=== PATIENT | male | born 1965 | race Caucasian/White ===

== ENCOUNTER 2017-12-11 07:32 | Inpatient (IN) | payer BC ==
[2017-11-22 13:52] VITALS: BMI 47.0
--- NOTE | 2017-11-22 14:43 | PAT Medication Instructions ---
Service Date November 22, 2017. Current Home Medication List Atorvastatin (Lipitor), 20 MG PO HS Diclofenac (Voltaren), 75 MG PO BID Duloxetine Hcl (Cymbalta), 60 MG PO HS Gabapentin (Neurontin), 600 MG PO TID Lorazepam (Ativan), 0.5 MG PO PRN Multivitamin (Multivitamin), 1 TAB PO QAM Omeprazole (Prilosec), 20 MG PO PRN Oxycodone/Acetaminophen 5MG/325MG (Percocet 5MG/325MG), 1 TABLET PO Q6H PRN for Pain Triamterene/Hctz (Dyazide 37.5MG/25MG), 1 TAB PO QAM Medication Instructions For Your Scheduled Surgery - Hold the following medications 7 days prior to surgery per surgeon: Diclofenac (Voltaren), 75 MG PO BID - Hold the following medications the morning of surgery: Multivitamin (Multivitamin), 1 TAB PO QAM Triamterene/Hctz (Dyazide 37.5MG/25MG), 1 TAB PO QAM - Take the following medications the morning of surgery with a sip of water: Gabapentin (Neurontin), 600 MG PO TID Lorazepam (Ativan), 0.5 MG PO PRN (if needed) Omeprazole (Prilosec), 20 MG PO PRN (if needed) Oxycodone/Acetaminophen 5MG/325MG (Percocet 5MG/325MG), 1 TABLET PO Q6H PRN for Pain (if needed, can be taken up to four hours before surgery) - Take the following medications as scheduled the night before surgery: Atorvastatin (Lipitor), 20 MG PO HS Duloxetine Hcl (Cymbalta), 60 MG PO HS Gabapentin (Neurontin), 600 MG PO TID Lorazepam (Ativan), 0.5 MG PO PRN (if needed) Omeprazole (Prilosec), 20 MG PO PRN (if needed) Oxycodone/Acetaminophen 5MG/325MG (Percocet 5MG/325MG), 1 TABLET PO Q6H PRN for Pain (if needed) If you have any questions please call us at [phone] or [phone] or [phone]
[2017-11-22 15:10] LABS: BASO % 0.5 %; BASO ABS # 0.03 K/uL (0-0.2); EOS % 5.2 %; EOS ABS # 0.32 K/uL (0-0.5); HEMATOCRIT 43.1 % (42-52); HEMOGLOBIN 14.6 g/dL (14.0-18.0); IG# 0.01 K/uL (0.00-0.02); LYMPH % 28.3 %; LYMPH ABS # 1.76 K/uL (1.2-3.4); MEAN CELL VOLUME 83.9 fL (80-100); MEAN CORPUSCULAR HEMOGLOBIN 28.4 pg (25-34); MEAN CORPUSCULAR HGB CONC 33.9 g/dl (32-36); MONO % 7.2 %; MONO ABS # 0.45 K/uL (0.11-0.59); NEUT % 58.6 %; NEUT ABS # 3.64 K/uL (1.4-6.5); PLATELET COUNT 227 K/uL (130-400); RED CELL DISTRIBUTION WIDTH CV 14.6 % (11.5-14.5); WHITE BLOOD COUNT 6.21 K/uL (4.8-10.8)
--- NOTE | 2017-11-22 15:16 | DIAGNOSTIC IMAGING REPORT ---
CHEST 2 VIEWS ROUTINE HISTORY: 52 years-old Male PAT preoperative exam. No acute chest complaints COMPARISON: None available TECHNIQUE: PA and lateral views of the chest FINDINGS: Cardiac mediastinal and hilar silhouettes are within normal limits. There is no pneumothorax, pleural effusion, focal airspace consolidation or overt pulmonary edema. Linear subsegmental left basilar opacities suggest atelectasis or scarring. Hardware of the cervical spine. Bones appear grossly intact. IMPRESSION: No acute process. The above report was generated using voice recognition software. It may contain grammatical, syntax or spelling errors. Electronically signed by: Ariel Gross M.D. 11/22/2017 3:14 PM Dictated Date/Time: 11/22/2017 3:13 PM
[2017-11-22 15:22] LABS: CALCIUM 8.6 mg/dl (8.5-10.1); CREATININE 1.08 mg/dl (0.60-1.40); POTASSIUM 3.9 mmol/L (3.5-5.1)
[~2017-12-11] VITALS: Ht 172.7 cm; Wt 140.3 kg
[2017-12-11] VITALS (8 sets, daily range): BP systolic 108–146; BP diastolic 72–87; PULSE 65–106; TEMP 36.4–36.6; O2SAT 91–99; Ht 172.7 cm; Wt 140.3 kg
[~2017-12-11 07:32] MED LIST: ACETAMINOPHEN 500 MG TAB PO SCH; ATOR-22 PO; CEFAZOLIN 3000MG IV PUSH 22.5 ML IV SCH; CeleBREX 200 MG CAP PO SCH; DICL-201 PO; DULO60CA44 PO; GABA-113 PO; GABAPENTIN 900 MG PO SCH; LACTATED RINGER'S 1000ML 1,000 ML IV SCH; LORA-741 PO; MULT-506 PO; OXYC-57 PO; PRLSR20 PO; TRIA37.5 PO
[2017-12-11] MEDS ORDERED: MIDAZOLAM HCL 1 MG/ML 2ML VIAL ONE (08:36)
[2017-12-11] MEDS ORDERED: FENTANYL CITRATE INJ 50 MCG/1 ML 2 ML VIAL ONE ×5 (08:36→14:18)
--- NOTE | 2017-12-11 08:49 | History & Physical Bridge Note ---
H&P Re-Evaluation Bridge Note: I have examined the patient, reviewed the History & Physical and in the interval since the performance of the History & Physical I have noted the following changes of clinical significance: No changes noted
--- NOTE | 2017-12-11 08:50 | History and Physical ---
History & Physical Date December 11, 2017. Chief Complaint Back and leg pain History of Present Illness The patient is a 52 year old male with complaints of back and leg pain Additional History Hepatic Disease: No Endocrine Disorder: No Kidney Disease: No Hypertension: Yes Heart Disease: No Bleeding Tendencies: No Infectious Diseases: No Other: Morbid obesity Allergies Coded Allergies: No Known Allergies (Unverified , 12/11/17) Home Medications Scheduled Atorvastatin (Lipitor), 20 MG PO HS Diclofenac (Voltaren), 75 MG PO BID Duloxetine Hcl (Cymbalta), 60 MG PO HS Gabapentin (Neurontin), 600 MG PO TID Lorazepam (Ativan), 0.5 MG PO PRN Multivitamin (Multivitamin), 1 TAB PO QAM Omeprazole (Prilosec), 20 MG PO PRN Triamterene/Hctz (Dyazide 37.5MG/25MG), 1 TAB PO QAM Scheduled PRN Oxycodone/Acetaminophen 5MG/325MG (Percocet 5MG/325MG), 1 TABLET PO Q6H PRN for Pain Physical Examination Skin: warm/dry, no rash Eyes: normal inspection, EOMI, sclerae normal ENT: normal ENT inspection, pharynx normal Head: normocephalic, atraumatic Neck: supple, no adenopathy, trachea midline Respiratory/Chest: lungs clear, normal breath sounds, no respiratory distress Cardiovascular: regular rate, rhythm, no edema, no murmur Abdomen / GI: normal bowel sounds, non tender Back: normal inspection Extremities: normal inspection, normal range of motion Neurologic/Psych: no motor/sensory deficits, alert, normal reflexes, oriented x 3 Diagnosis Lumbar spinal stenosis with neurogenic claudication and spondylolisthesis Plan of Treatment L2-S1 decompression and fusion
[2017-12-11] MEDS ORDERED: EpINEphrine INJ 1MG/ML AMP 1 MG/ML AMP ONE (10:08)
[2017-12-11] MEDS ORDERED: BACITRACIN 50000 UNIT VIAL ONE (10:08)
[2017-12-11] MEDS ORDERED: BUPIVACAINE 0.25% 30 ML VIAL ONE (10:10)
[2017-12-11] MEDS ORDERED: PHENYLEPHRINE 100MCG/ML 5ML SYR IV PRN (10:30)
[2017-12-11] MEDS ORDERED: NALOXONE HCL 0.4 MG/1 ML VIAL/CARP IV PRN ×3 (10:30→14:15)
[2017-12-11] MEDS ORDERED: ATROPINE SULFATE 0.1 MG/ML 5ML SYR IV PRN (10:30)
[2017-12-11] MEDS ORDERED: ONDANSETRON INJ 2 MG/ML 2 ML VIAL IV PRN ×2 (10:30→14:15)
[2017-12-11] MEDS ORDERED: MoRPHine SULFATE 4 MG/ML 1 ML CARP\\VIAL IV PRN (10:30)
[2017-12-11] MEDS ORDERED: MEPERIDINE HCL 25 MG/ML CARP IV PRN (10:30)
[2017-12-11] MEDS ORDERED: EpHEDrine SULFATE INJ 50 MG/ML AMP IV PRN (10:30)
[2017-12-11] MEDS ORDERED: FLUMAZENIL 0.1 MG/1 ML 10 ML VIAL IV PRN (10:30)
[2017-12-11] MEDS ORDERED: LABETALOL HCL IV 5 MG/ML 20ML IV PRN (10:30)
[2017-12-11] MEDS ORDERED: HYDROmorphone INJ 2 MG/ML SYR/VIAL ONE (10:56)
[2017-12-11] MEDS ORDERED: ROCURONIUM BROMIDE 10 MG/ML 5 ML VIAL ONE (10:57)
[2017-12-11] MEDS ORDERED: ALBUMIN HUMAN 5% 12.5 GM/250 ML VIAL IV ONE ×2 (11:18→13:06)
[2017-12-11 12:40] LABS: HEMATOCRIT 33.6 % (42-52); HEMOGLOBIN 11.4 g/dL (14.0-18.0)
[2017-12-11] MEDS ORDERED: EpHEDrine SULFATE 50MG/5ML SYR ONE ×2 (13:13→14:23)
[2017-12-11] MEDS ORDERED: ONDANSETRON INJ 2 MG/ML 2 ML VIAL ONE ×2 (13:13→14:23)
[2017-12-11] MEDS ORDERED: VOLUVEN IN NSS ONE (13:13)
[2017-12-11] MEDS ORDERED: GLYCOPYRROLATE INJ 0.2 MG/ML VIAL ONE (13:13)
[2017-12-11] MEDS ORDERED: NEOSTIGMINE METHYLSULFATE 1 MG/ML 10ML VIAL ONE (13:13)
[2017-12-11] MEDS ORDERED: LIDOCAINE HCL 2% 2 ML VIAL (20MG/ML) ONE (13:13)
[2017-12-11] MEDS ORDERED: PROPOFOL IV EMULSION 10 MG/ML 20 ML VIAL ONE (13:13)
[2017-12-11] MEDS ORDERED: DEXAMETHASONE SOD INJ 4 MG/ML VIAL ONE (13:13)
[2017-12-11] MEDS ORDERED: SURGICEL ABSORB HEMOSTAT 2IN X 14IN TOP ONE (13:27)
[2017-12-11] MEDS ORDERED: CEFAZOLIN SOD 1 GM VIAL ONE (13:49)
[2017-12-11] MEDS ORDERED: FLOSEAL HEMOSTATIC MATRIX 10ML TOP ONE (13:54)
[2017-12-11] MEDS ORDERED: SODIUM CHLORIDE 0.9% 1000ML 1,000 ML IV SCH (14:06)
--- NOTE | 2017-12-11 14:06 | [facility] Operative Report ---
Operative Report Operative Date December 11, 2017. Pre-Operative Diagnosis Lumbar spinal stenosis with neurogenic claudication and spondylolisthesis Post-Operative Diagnosis Lumbar spinal stenosis with neurogenic claudication and spondylolisthesis Procedure(s) Performed 1.Lumbar decompression medial facetectomy foraminotomies L2-3 L3-4 L4-5 L5-S1. #2 posterior spinal fusion L2-3 L3-4 L4-5 L5-S1. #3 placement posterior segmental instrumentation L2-S1 including a cross-link. #4 interbody fusion L5-S1. #5 placement of titanium 12 x 26 mm cage at L5-S1. #6 placement of locally harvested autograft in the posterior gutters. #7 placement InFUSE collagen sponge, mass graft and posterior gutters and ostial amp in the interbody space. Surgeon Dr. Jensen Tank Tester Surgeon(s) Whitney Steward PA-C Estimated Blood Loss 2100ml Findings Severe spinal stenosis and spondylolisthesis Specimens none per surgeon Anesthesia Type General Description of Procedure Patient was met with preoperatively case discussed all questions addressed. After informed consent obtained patient was taken to the operative suite underwent intubation and placed in a prone position the Lior table tablets frame all bony prominences well-padded eyes inspected to ensure no external pressure placed upon. This point the lumbar spine was prepped and draped in normal sterile fashion. Sharp dissection with the assistance Bovie cautery was performed down to and exposing the lamina and transverse of L2 L3-L4-L5 and sacral ala bilaterally. Obvious facet hypertrophy spinal listhesis noted. Complete laminectomy of L5 L4 and L3 L2 was performed from a caudal cephalad fashion addressing severe spinal stenosis lateral recess and foraminal stenosis. Pedicle screws were then placed in L2 L3-L4-L5 and S1 levels bilaterally with the assistance of fluoroscopy and the appropriately sized micheal placed. Through a transforaminal approach and left complete discectomy of L5- S1 was performed endplates created to subcortical bleeding bone and a 12 x 26 mm titanium cage filled with ostium bone graft tapped in position. The rods and locked in final position bilaterally. Cross-link locked in position. 15 round LEA drain inserted. Incision then closed with 1 Vicryl fascia 2-0 Vicryl subcutaneous and 4 Monocryl for fashion closure Steri-Strips sterile dressings placed. Patient will continue PACU stable condition. Please note Whitney Mena was present throughout the entire procedure involved in patient positioning complex portions of the surgery and final skin closure. I attest to the content of the Intraoperative Record and any orders documented therein. Any exceptions are noted below.
--- NOTE | 2017-12-11 14:12 | DIAGNOSTIC IMAGING REPORT ---
LUMBAR SPINE, INTRAOPERATIVE FLUOROSCOPY HISTORY: L2-S1 decompression and fusion. FLUOROSCOPY TIME: 36 seconds. FINDINGS: Intraoperative fluoroscopy was provided for the lumbar spine. 5 fluoroscopic spot images were obtained. Posterior decompression fusion from L2 through S1 with pedicle screws and rods. The hardware appears intact. There is a long sacroiliac bolt with the tip fractured at the level of the right sacroiliac joint. IMPRESSION: 1. Fluoroscopy provided for a L2-S1 posterior decompression and fusion. 2.. The tip of the long sacroiliac bolt is fractured at the level of the right sacroiliac joint. This finding was called/faxed to the referring physician. This is age indeterminate. Electronically signed by: Kiran Bravo M.D. 12/11/2017 2:11 PM Dictated Date/Time: 12/11/2017 2:08 PM
[2017-12-11 14:15] LABS: HEMATOCRIT 30.9 % (42-52); HEMOGLOBIN 10.4 g/dL (14.0-18.0)
[2017-12-11] MEDS ORDERED: PROMETHAZINE HCL INJ 12.5 MG in SODIUM CHLORIDE 0.9% 50ML 50 ML IV PRN (14:15)
[2017-12-11] MEDS ORDERED: METOCLOPRAMIDE HCL INJ 5 MG/ML 2 ML VIAL IV PRN (14:15)
[2017-12-11] MEDS ORDERED: BISACODYL 10 MG SUPP PR PRN (14:15)
[2017-12-11] MEDS ORDERED: HYDROmorphone HCL 0.5MG/ML 50 ML CASSETTE IV PRN (14:15)
[2017-12-11] MEDS ORDERED: DO NOT ADMINISTER PNEUMOCOCCAL VACCINE PRN (14:15)
[2017-12-11] MEDS ORDERED: ACETAMINOPHEN IV 100 ML IV PRN (14:15)
[2017-12-11] MEDS ORDERED: LORAZEPAM 0.5 MG TAB PO PRN (14:15)
[2017-12-11] MEDS ORDERED: LORAZEPAM INJ 0.5 MG in SYRINGE 0 ML IV PRN (14:15)
[2017-12-11] MEDS ORDERED: SOD PHOSPHATE/SOD BIPHOSPHATE ENEMA 132 ML BTL PR PRN (14:15)
[2017-12-11] MEDS ORDERED: hydrOXYzine HCL 25 MG TAB PO PRN (14:15)
[2017-12-11] MEDS ORDERED: ACETAMINOPHEN 500 MG TAB PO PRN (14:15)
[2017-12-11] MEDS ORDERED: FAMOTIDINE 20 MG TAB PO PRN (14:15)
[2017-12-11] MEDS ORDERED: ALUMINUM/MAGNESIUM SUSP 30 ML UDC PO PRN (14:15)
[2017-12-11] MEDS ORDERED: MAGNESIUM HYDROXIDE SUSP 30 ML UDC PO PRN (14:15)
[2017-12-11] MEDS ORDERED: DO NOT ADMINISTER FLU VACCINE PRN (14:15)
[2017-12-11] MEDS ORDERED: DC PCA PRN (14:15)
[2017-12-11] MEDS ORDERED: HYDROmorphone HCL 0.5MG/ML 50 ML CASSETTE ONE (14:39)
[2017-12-11] MEDS: HYDROmorphone INJ 0.5 MG/0.5 ML SYR IV PRN ×4 (14:55→15:16)
--- NOTE | 2017-12-11 16:53 | Anesthesiology Progress Note ---
Anesthesia Post Op Note Date & Time December 11, 2017 at 16:53 Vital Signs Pain Intensity: 6 Vital Signs Past 12 Hours Date Time Temp Pulse Resp B/P (MAP) Pulse Ox O2 Delivery O2 Flow Rate FiO2 12/11/17 16:46 36.4 96 18 124/80 (95) 98 Nasal Cannula 4.0 12/11/17 15:30 36.6 94 14 126/85 100 Nasal Cannula 4 12/11/17 15:20 94 14 111/69 100 Nasal Cannula 4 12/11/17 15:10 85 14 116/72 99 Nasal Cannula 4 12/11/17 15:00 86 14 111/62 (62) 100 Nasal Cannula 4 12/11/17 14:50 88 14 99/50 100 Oxymask 10 12/11/17 14:40 89 14 117/71 100 Oxymask 10 12/11/17 14:32 36.3 88 14 117/75 100 Oxymask 10 12/11/17 08:08 36.6 65 18 146/81 97 Room Air Notes Mental Status: alert / awake / arousable, participated in evaluation Pt Amnestic to Procedure: Yes Nausea / Vomiting: adequately controlled Pain: adequately controlled Airway Patency, RR, SpO2: stable & adequate BP & HR: stable & adequate Hydration State: stable & adequate Anesthetic Complications: no major complications apparent
[2017-12-11] MEDS: SODIUM CHLORIDE 0.9% 1000ML 1,000 ML IV SCH (18:44)
[2017-12-11] MEDS: CEFAZOLIN IV 3,000 MG in SYRINGE 0 ML IV SCH (18:49)
[2017-12-11] MEDS: GABAPENTIN 600 MG TAB PO SCH (21:12)
[2017-12-11] MEDS: ATORVASTATIN 20 MG TAB PO SCH (21:12)
[2017-12-11] MEDS: DULOXETINE HCL 60 MG CAP PO SCH (21:12)
[2017-12-11] MEDS: DOCUSATE SODIUM/SENNA 50/8.6MG TAB PO SCH (21:12)
[2017-12-12] MEDS: SODIUM CHLORIDE 0.9% 1000ML 1,000 ML IV SCH (01:18)
[2017-12-12] MEDS: CEFAZOLIN IV 3,000 MG in SYRINGE 0 ML IV SCH (03:04)
[2017-12-12 03:09] VITALS: BP 135/84; PULSE 86; TEMP 36.7; O2SAT 94
[2017-12-12] MEDS ORDERED: NURSING DECISION MEDICATION ORDER SCH (05:00)
[2017-12-12] MEDS ORDERED: HYDROmorphone INJ 0.5 MG/0.5 ML SYR IV PRN (06:00)
[2017-12-12 06:10] LABS: HEMATOCRIT 29.1 % (42-52); HEMOGLOBIN 9.7 g/dL (14.0-18.0); IG# 0.03 K/uL (0.00-0.02); LYMPH % 6.2 %; LYMPH ABS # 0.63 K/uL (1.2-3.4); MEAN CELL VOLUME 84.1 fL (80-100); MEAN CORPUSCULAR HGB CONC 33.3 g/dl (32-36); MEAN PLATELET VOLUME 9.5 fL (7.4-10.4); MONO % 7.2 %; MONO ABS # 0.73 K/uL (0.11-0.59); NEUT % 86.3 %; NEUT ABS # 8.75 K/uL (1.4-6.5); PLATELET COUNT 227 K/uL (130-400); RED CELL DISTRIBUTION WIDTH CV 14.8 % (11.5-14.5); RED CELL DISTRIBUTION WIDTH SD 45.7 fL (36.4-46.3); WHITE BLOOD COUNT 10.14 K/uL (4.8-10.8)
[2017-12-12 06:49] LABS: CALCIUM 7.6 mg/dl (8.5-10.1); CREATININE 1.09 mg/dl (0.60-1.40); POTASSIUM 4.4 mmol/L (3.5-5.1)
[2017-12-12] MEDS ORDERED: ROCURONIUM BROMIDE 10 MG/ML 5 ML VIAL ONE (07:00)
[2017-12-12] MEDS: OXYCODONE HCL IR 5 MG TAB (IMMEDIATE RELEASE) PO PRN ×3 (07:23→19:32)
--- NOTE | 2017-12-12 07:27 | Clinical Documentation Query ---
SUDHAKAR Chand : CLINICAL DOCUMENTATION QUERIES QUERY 1 OF 2 Patient is a 52 year old male who on 12/11 underwent lumbar decompression, posterior lumbosacral spinal instrumented and interbody fusions. Preoperative H&H was 14.6 g/dl and 43.1%. POD #1, repeat values are 9.7 g/dl and 29.1%. EBL for the procedure was 2100 ml's with subsequently documented losses totaling an additional 530 ml's to date. He is being monitored with serial hematology and I/O including drain outputs. In your clinical opinion is this patient being managed for: ( x ) Acute blood loss anemia ( ) Not Agree ( ) Other explanation of clinical findings (No explanation is considered a No Response) ( ) Unable to determine ( ) Need to Discuss (Phone CDS or qliq) (No discussion is considered a No Response) The medical record reflects the following clinical findings, treatment, and risk factors. Clinical Indicators: As above Treatment: He is being monitored with serial hematology and I/O including drain outputs Risk Factors: Acute perioperative blood losses QUERY 2 OF 2 BMI 47.0 kg/m*m. In order to capture this clinically relevant information, an associated condition must explicitly be documented by the provider. As appropriate, consider documentation as suggested below. Thank you. In your clinical opinion is this patient being managed for: ( x ) Morbid obesity, BMI 47.0 kg/m*m. ( ) Not Agree ( ) Other explanation of clinical findings (No explanation is considered a No Response) ( ) Unable to determine ( ) Need to Discuss (Phone CDS or qliq) (No discussion is considered a No Response) The medical record reflects the following clinical findings, treatment, and risk factors. Clinical Indicators: As above Risk Factors: Caloric intake greater than expenditure Please clarify and document your clinical opinion in the progress notes and discharge summary. Terms such as "probable", "suspected", "likely", "questionable", "possible", or "still to be ruled out" are acceptable. IF IN AGREEMENT, YOU MUST DOCUMENT ABOVE DIAGNOSTIC STATEMENT IN DAILY PROGRESS NOTES AND DISCHARGE SUMMARY. This document is not part of the patient's record. Thank You, Jareth Ashby, RN [phone]
--- NOTE | 2017-12-12 07:40 | Anesthesiology Progress Note ---
Anesthesia Post Op Note Date & Time December 12, 2017 at 07:39 Vital Signs Pain Intensity: 7.5 Vital Signs Past 12 Hours Date Time Temp Pulse Resp B/P (MAP) Pulse Ox O2 Delivery O2 Flow Rate FiO2 12/12/17 07:33 Room Air 12/12/17 03:09 36.7 86 16 135/84 (101) 94 Room Air 12/11/17 23:45 36.6 82 16 125/80 (95) 91 CPAP 12/11/17 23:05 Room Air 12/11/17 20:06 36.4 100 18 118/87 (97) 96 Nasal Cannula 2.0 Notes Mental Status: alert / awake / arousable, participated in evaluation Pt Amnestic to Procedure: Yes Nausea / Vomiting: adequately controlled Pain: adequately controlled, improving with treatment Airway Patency, RR, SpO2: stable & adequate BP & HR: stable & adequate Hydration State: stable & adequate Anesthetic Complications: no major complications apparent c/o being "Queesy" postoperatively. No vomiting. No current c/o N/V.
[2017-12-12 07:57] VITALS: BP 128/85; PULSE 90; TEMP 36.5; O2SAT 92
[2017-12-12] MEDS: GABAPENTIN 600 MG TAB PO SCH ×3 (08:27→20:50)
[2017-12-12] MEDS: TRIAMTERENE/HCTZ 37.5/25MG CAP PO SCH (08:27)
[2017-12-12] MEDS ORDERED: PANTOprazole SOD 40 MG TAB PO PRN (09:00)
[2017-12-12 09:10] VITALS: BP 154/97
[2017-12-12 11:33] VITALS: BP 135/82; PULSE 77; TEMP 36.6; O2SAT 98
[2017-12-12] MEDS: KETOROLAC TROMETHAMINE 30 MG/ML VIAL IV PRN ×2 (11:42→20:51)
--- NOTE | 2017-12-12 11:42 | Progress Note ---
Progress Note Date of Service December 12, 2017. Progress Note Patient's back pain is controlled. Leg symptoms markedly improved. Vital signs stable. On exam his good strength testing appears comfortable. Assessment status post lumbar depression fusion per plan at this time will continue physical therapy advance his bowel regiment. We will try to get him into rehab. His body habitus lower extremity weakness and history of trauma would make him an excellent candidate for rehab.
[2017-12-12 15:39] VITALS: BP 115/74; PULSE 89; TEMP 36.7; O2SAT 98
[2017-12-12] MEDS: DOCUSATE SODIUM/SENNA 50/8.6MG TAB PO SCH (20:50)
[2017-12-12] MEDS: DULOXETINE HCL 60 MG CAP PO SCH (20:50)
[2017-12-12] MEDS: ATORVASTATIN 20 MG TAB PO SCH (20:50)
[2017-12-12 22:39] VITALS: BP 121/74; PULSE 97; TEMP 36.9; O2SAT 94
[2017-12-13] MEDS: POLYETHYLENE (MIRALAX) 17 GM PACK PO SCH ×4 (05:21→23:42)
[2017-12-13] MEDS: OXYCODONE HCL IR 5 MG TAB (IMMEDIATE RELEASE) PO PRN ×3 (05:24→19:45)
[2017-12-13 07:59] VITALS: BP 120/76; PULSE 86; TEMP 36.7; O2SAT 93
[2017-12-13] MEDS: GABAPENTIN 600 MG TAB PO SCH ×3 (08:43→21:03)
[2017-12-13] MEDS: TRIAMTERENE/HCTZ 37.5/25MG CAP PO SCH (08:43)
[2017-12-13 11:00] LABS: HEMATOCRIT 25.3 % (42-52); HEMOGLOBIN 8.5 g/dL (14.0-18.0)
--- NOTE | 2017-12-13 14:57 | Progress Note ---
Progress Note Date of Service December 13, 2017. Progress Note Patient states his back pain is controlled. His leg symptoms steadily improving. On exam vital signs are stable he is sitting in the chair at the bedside is good strength testing. He appears comfortable. Assessment status post multilevel lumbar decompression fusion. Plan at this time will maintain the LEA drain. We will consider possible discharge home with home health pending his status tomorrow.
[2017-12-13 15:31] VITALS: BP 135/82; PULSE 85; TEMP 36.8; O2SAT 97
[2017-12-13] MEDS: KETOROLAC TROMETHAMINE 30 MG/ML VIAL IV PRN (15:57)
[2017-12-13 16:00] VITALS: O2SAT 97
[2017-12-13] MEDS: DOCUSATE SODIUM/SENNA 50/8.6MG TAB PO SCH (21:03)
[2017-12-13] MEDS: ATORVASTATIN 20 MG TAB PO SCH (21:03)
[2017-12-13] MEDS: DULOXETINE HCL 60 MG CAP PO SCH (21:03)
[2017-12-13 22:53] VITALS: BP 108/71; PULSE 87; TEMP 36.7; O2SAT 90
[2017-12-14] MEDS: POLYETHYLENE (MIRALAX) 17 GM PACK PO SCH ×2 (05:28→12:05)
[2017-12-14] MEDS: OXYCODONE HCL IR 5 MG TAB (IMMEDIATE RELEASE) PO PRN ×3 (05:29→16:30)
[2017-12-14 06:06] VITALS: BP 151/81; PULSE 91; TEMP 36.8; O2SAT 97
[2017-12-14] MEDS: GABAPENTIN 600 MG TAB PO SCH ×2 (09:11→13:45)
[2017-12-14] MEDS: TRIAMTERENE/HCTZ 37.5/25MG CAP PO SCH (09:12)
[2017-12-14] MEDS ORDERED: RXC5 PO (11:46)
--- NOTE | 2017-12-14 11:47 | Discharge Instructions ---
Discharge Instructions Date of Service December 14, 2017. Admission Reason for Admission: Spinal Stenosis Discharge Discharge Diagnosis / Problem: lumbar stenosis Discharge Goals Goal(s): Improve function Activity Recommendations Activity Limitations: per Instructions/Follow-up section . Instructions / Follow-Up Instructions / Follow-Up ACTIVITY RECOMMENDATIONS: SELF CARE INSTRUCTIONS AFTER THORACIC/LUMBAR FUSIONS 1. You may walk to your tolerance. It is good exercise for your legs and back. Expect some back and intermittent leg aches and pains. 2. You may perform "counter-top" level activities (make a sandwich, jony with a project, etc.). 3. No bending or lifting of more than 10 pounds or back twisting of any nature (roll like a log when turning in bed). 4. You may ride in a car for 20-30 minutes at a time. No driving until after your first visit with your doctor. 5. Frequent changes of position and restricting sitting to 30 minutes at a time will help limit the amount of back spasms and stiffness you may experience. 6. You may discontinue the use of ambulatory aids (cane, crutches, etc.) once your strength and confidence allow. 7. You may compression molding machine setter the shower and let water strike your incision when you arrive home at least once daily. Do not take a tub bath, sit in a hot tub or go into a swimming pool until after your first recheck in the office. SPECIAL CARE INSTRUCTIONS: VERY IMPORTANT TO READ AND REVIEW A. Your surgical incision has been closed with a cosmetic suture under the skin that will dissolve in about 6 weeks. In 14 days, you can use a pair of clean scissors and cut the suture that is left outside of the skin at the ends of your incision. 1. The small skin tapes can be removed 7 days after surgery if they have not fallen off by that point. 2. You may keep the wound open to air as much as possible to promote healing after post-op day number 5 unless told otherwise by your doctor. 3. If you think the wound looks like it is becoming infected (redness or worsening drainage) and/or you are experiencing fever, chill or worsening back pain and muscle spasms, contact the office so that we may evaluate you as soon as possible. B. Complications are uncommon, but please contact us if you have any signs or symptoms of: 1. wound infection (fever higher than 102.5 degrees F, redness, separation of wound, drainage, or increasing pain from the incision) 2. blood clots in legs (pain, swelling, redness and warmth in legs) 3. urinary tract infection (fever higher than 102.5 degrees F, burning upon urination or increased frequency of urination) 4. nerve problems (inability to walk on your toes or heels, numbness, loss of bowel or bladder control) 5. any other symptoms that concern you C. Please call the office at if you have any concerns or questions about your operation or recovery. D. No smoking! Smoking drastically decreases the chance of a solid fusion. E. Do not take any anti-inflammatory medications (Indocin, Advil, Motrin, Aspirin, Naprosyn, etc.) as these may inhibit the chance of a solid fusion. Tylenol is okay to take for pain. MANAGING PAIN AFTER SPINAL SURGERY 1. Narcotic medication is intended for short-term use and will be provided for surgical pain. Surgical pain usually lasts for a period of 4-6 weeks. Narcotic medication includes Percocet, Vicodin, Darvocet, Tylenol #3 or Lortab. 2. Longer-term pain is more appropriately treated with non-narcotic medication such as Tylenol ES. 3. Muscle spasm is not appropriately treated with narcotics. Muscle relaxers such as Soma, Flexeril or Skelaxin can be used along with Tylenol ES. 4. Remember that we all live with some "aches and pains". This is not unusual or uncommon after an injury or as we get older. a. Back pain is expected and may include muscle spasms for 4 to 6 weeks after surgery. The pain should gradually improve. If the pain worsens for no apparent reason, please contact the office. b. Intermittent leg pain may also be experienced and should not be concerned about unless it worsens for no apparent reason. If so, please contact the office. 5. We will provide appropriate medication within the normal guidelines of their prescribed use. We will also be very cautious and aware of potential abuse and extended duration of patients' medication needs. a. Pain medications are for your comfort and to assist with sleep and rest so that the tissue can heal. They are not provided in order to return to normal activity and should not be used through the day. To do so or worsening pain at night can result from ongoing tissue damage and development of tolerance to the prescribed medicine. 6. Please allow 2-3 days to process refills. Prescriptions will not be mailed but must be picked up at the office. FOLLOW UP VISIT: Keep your scheduled follow-up appointment. Any questions, please call the office at . Current Hospital Diet Patient's current hospital diet: Regular Diet Discharge Diet Recommended Diet: Regular Diet Procedures Procedures Performed: 1.Lumbar decompression medial facetectomy foraminotomies L2-3 L3-4 L4-5 L5-S1. #2 posterior spinal fusion L2-3 L3-4 L4-5 L5-S1. #3 placement posterior segmental instrumentation L2-S1 including a cross-link. #4 interbody fusion L5-S1. #5 placement of titanium 12 x 26 mm cage at L5-S1. #6 placement of locally harvested autograft in the posterior gutters. #7 placement InFUSE collagen sponge, mass graft and posterior gutters and ostial amp in the interbody space. Pending Studies Studies pending at discharge: no Medical Emergencies . Who to Call and When: Medical Emergencies: If at any time you feel your situation is an emergency, please call 911 immediately. . Non-Emergent Contact Non-Emergency issues call your: Primary Care Provider . "Provider Documentation" section prepared by Dawson Jensen. .
[2017-12-14 13:24] VITALS: BP 151/81; PULSE 91; TEMP 36.8; O2SAT 97
--- NOTE | 2017-12-14 13:50 | Discharge Summary ---
Orthopedic Discharge Summary Admission Date/Reason December 11, 2017 at 09:00 Spinal Stenosis. Discharge Date/Disposition December 14, 2017 Home with services Diagnosis Principal Diagnosis: Lumbar spinal stenosis Admission Physical Exam As per Admitting History & Physical. Hospital Course Patient underwent lumbar depression fusion tolerated as well as taken to the orthopedic floor postoperatively. Postop day #1 he was up and amatory progressive postop day #2 and 3 LEA drain decreasing strength improving. Subsequently discharged home. We will discharge him home with home health to maintain the LEA drain another 24-40 hours. Discharge orders instructions can be found in chart for further review. Discharge Instructions Please refer to the electronic Patient Visit Report (Discharge Instructions) for additional information.
[2017-12-14 14:58] VITALS: BP 127/84; PULSE 91; TEMP 36.6; O2SAT 100
== END 2017-12-14 17:00 | disposition home or self-care (01) | DRG 454 ==
LOC: C.ACU 07:32 → C.3E 09:00 → ENRESERV 15:04
PROVIDERS: ADMIT Orthopaedic Surgery Orthopaedic Surgery of the Spine; ATTEND Orthopaedic Surgery Orthopaedic Surgery of the Spine
PROC: 0SG3071 Fusion of Lumbosacral Joint with Autologous Tissue Substitute, Posterior Approach, Posterior Column, Open Approach (ICD-10-PCS; principal; 2017-12-11 09:25)
PROC: 0SG30AJ Fusion of Lumbosacral Joint with Interbody Fusion Device, Posterior Approach, Anterior Column, Open Approach (ICD-10-PCS; principal; 2017-12-11 09:25)
PROC: 0ST40ZZ Resection of Lumbosacral Disc, Open Approach (ICD-10-PCS; principal; 2017-12-11 09:25)
PROC: 0SG1071 Fusion of 2 or more Lumbar Vertebral Joints with Autologous Tissue Substitute, Posterior Approach, Posterior Column, Open Approach (ICD-10-PCS; principal; 2017-12-11 09:25)
DX: M48.062 Spinal stenosis, lumbar region with neurogenic claudication (principal); Z68.42 Body mass index [BMI] 45.0-49.9, adult; M43.16 Spondylolisthesis, lumbar region; E66.01 Morbid (severe) obesity due to excess calories; Z79.899 Other long term (current) drug therapy